=== PATIENT | female | born 1980 | race African-American/Black ===

== ENCOUNTER 2018-10-03 17:46 | Emergency (ER) | payer OTHER ==
[~2018-10-03] VITALS: Ht 154.9 cm; Wt 91.2 kg
[2018-10-03 17:56] VITALS: Ht 154.9 cm; Wt 91.2 kg
[2018-10-03 18:35] VITALS: BP 156/107
== END 2018-10-03 18:35 | disposition home or self-care (01) ==
LOC: ED 17:46
DX: S90.862A Insect bite (nonvenomous), left foot, initial encounter (principal); S90.562A Insect bite (nonvenomous), left ankle, initial encounter; F41.9 Anxiety disorder, unspecified; W57.XXXA Bitten or stung by nonvenomous insect and other nonvenomous arthropods, initial encounter; Y93.89 Activity, other specified; Y92.89 Other specified places as the place of occurrence of the external cause; Y99.8 Other external cause status

== ENCOUNTER 2019-06-30 14:17 | Emergency (ER) | payer SELFPAY ==
[~2019-06-30] VITALS: Ht 162.6 cm; Wt 87.5 kg
[2019-06-30 14:28] VITALS: BP 166/103; Ht 162.6 cm; Wt 87.5 kg
== END 2019-06-30 15:00 | disposition home or self-care (01) ==
LOC: ED 14:17
DX: R05 Cough (principal); R07.89 Other chest pain; R68.83 Chills (without fever); R11.0 Nausea; Z90.49 Acquired absence of other specified parts of digestive tract